=== PATIENT | female | born 1965 | race African-American/Black ===

== ENCOUNTER 2017-06-29 17:37 | Emergency (ER) | payer OTHER ==
[~2017-06-29] VITALS: Ht 175.3 cm; Wt 129.6 kg
[~2017-06-29 17:37] MED LIST: PHEN-460 PO
[2017-06-29 18:27] LABS: GLUCOSE,POINT OF CARE 101 MG/DL (70-110)
[2017-06-29] MEDS ORDERED: HYDROmorphone 2 MG/ML SYRINGE IM ONE (19:00)
[2017-06-29 21:28] VITALS: BP 148/76
== END 2017-06-29 22:03 | disposition home or self-care (01) ==
LOC: EMS 17:40
DX: S83.91XA Sprain of unspecified site of right knee, initial encounter (principal); S73.101A Unspecified sprain of right hip, initial encounter; I50.9 Heart failure, unspecified; F17.210 Nicotine dependence, cigarettes, uncomplicated; W10.9XXA Fall (on) (from) unspecified stairs and steps, initial encounter; Y93.01 Activity, walking, marching and hiking; Y92.830 Public park as the place of occurrence of the external cause; Y99.8 Other external cause status
CPT/HCPCS: 73502; 73562; 82962; 99284; J1170